=== PATIENT | male | born 1970 | race Caucasian/White ===

== ENCOUNTER 2017-08-12 18:09 | Emergency (ER) | payer SELFPAY ==
[2017-08-12 18:21] LABS: PLATELET COUNT 261 10^3/uL (150-400)
[2017-08-12] MEDS ORDERED: IOPAMIDOL (ISOVUE 370) 100 ML BTL IV ONE (18:29)
--- NOTE | 2017-08-12 18:35 | EDPHY ---
HPI/HX/ROS/PE/MDM Narrative: CHIEF COMPLAINT: Left-sided weakness, facial droop - Stroke Alert HISTORY OF PRESENT ILLNESS: The patient is a 47 y/o male with a history of diabetes and hypertension arriving for left-sided weakness and left-sided facial droop. This morning, just before 8:00 AM, he had difficulty grasping and hold items with his hands and difficulty balancing. He fell and was helped up by his . The episode lasted about 20 minutes. After the episode he returned to normal. This afternoon, at 3:50 PM, his was called because he was unable to stand due to left-sided weakness after having lunch. His picked him up and noticed a prominent left-sided facial droop and drove him to the ED. He denies headache or any other associated symptoms. He may have taken Xanax as he believed his morning episode may have been due to anxiety. He denies seizure history. He denies alcohol consumption today. He quit smoking 1 month ago. Further history obtained later in the emergency department course: Patient was felt to be back at baseline and normal around 820. His then left the house. Patient went to have lunch with a friend arriving just before 2 o' clock. The friend did not noticed any facial droop or obvious weakness although she felt the patient was somewhat slow to the answer some questions and may have been staring off into space. He told her he had taken a Xanax and she attributed the symptoms to possible sedation from Xanax. When they went to leave the restaurant after lunch patient was unable to stand and at that point was noted to have significant weakness in his left leg and left arm. When the arrived she noticed a pronounced left-sided facial droop. No fever, chills, chest pain, shortness of breath, palpitations, vomiting, diarrhea, urinary complaints, headache, lightheadedness. REVIEW OF SYSTEMS: Limited secondary to clinical condition PAST MEDICAL HISTORY: Hypertension, diabetes SOCIAL HISTORY: , at bedside, has a daughter VITAL SIGNS: Reviewed by me GENERAL: Well-developed, well-nourished, left-sided facial droop is present on arrival. HEENT: Atraumatic. Eyes: No icterus, no injection. Mouth: moist mucous membranes. No erythema or lesions. Neck: supple with no adenopathy. LUNGS: Clear to auscultation bilaterally, no wheezes, rhonchi or rales. CARDIAC: Regular rate and rhythm, no rubs, murmurs or gallops. ABDOMEN: Soft, nontender, nondistended, bowel sounds normal. BACK: No CVA tenderness. EXTREMITIES: No trauma. No edema. Range of motion is normal throughout. NEURO: Prominent left sided facial droop. Some left-sided neglect is present. Diminished attention. Speech is somewhat difficult to understand at times. Marked weakness in left arm and leg. SKIN: Warm and dry, no rash. PSYCHIATRIC: Normal mentation, no agitation. ED Course: I met the patient on arrival at 6:10PM. He had prominent left-sided facial droop , left-sided neglect, and marked left arm and leg weakness. On arrival it was unclear of time of onset of symptoms. He was quickly immediately to CT scan for imaging. I then spoke with his and learned of the 8:00 AM episode of dropping items and trouble balancing. According to his , his symptoms resolved in 25 minutes. She was then contacted by a friend at 3:50 PM, as the patient was unable to stand due to left-sided weakness after lunch. She drove up from [employer] and noticed a left-sided facial droop and drove him to the ED. 6:18 PM- CT is not indicative of a hemorrhage and iSTAT indicates a creatinine of 0.9. He will have a CTA to further determine an etiology. 6:25 PM- I spoke with Dr. Fisher at [facility]. 6:35 PM- CTA indicates middle cerebral artery occluded at M2 to M3 in the right hemisphere. Dr. Pathak evaluated this patient using the neurology robot. The patient will be transferred to [facility] for further treatment. Dr. Pathak will be the admitting physician. 6:55 PM- Advised bed patient will not be transferred by helicopter secondary to weather. Arrangements were made for critical care ground transport. 7:20 PM- ALS ground transport is available at this time. Critical care ambulance is still 40 min away. Given the fact that the patient is not currently on tPA and is felt to be outside the window for systemic tPA, as well as urgency in transporting the patient to [facility], this was made that the patient be would be transferred by ALS. I did consult with Dr. Lewis now and regarding this decision and he is in agreement. Patient was given a L of fluid. He is hypertensive, however, Dr. Pathak advises permissive hypertension at this time. Transfer paperwork signed and the patient was taken emergently to [facility]. MDM: Differential diagnoses the patient's presenting complaints was considered including but not limited to intracranial injury, TIA, ischemic cerebrovascular accident, hemorrhagic cerebrovascular accident, hypoglycemia, complex migraine , metastases, tumor, seizure, or electrolyte abnormality - Data Points Imaging Results: Imaging Impressions Head CT 08/12/17 18:11 Impression: 1. No intracranial hemorrhage or territorial infarct identified. 2. CTA brain and neck will be dictated separately Findings were communicated by telephone with Dr. LATHA PENA at 08/12/2017 18 :29 Head CTA 08/12/17 18:19 Impression: Acute thrombosis of the right middle cerebral artery inferior M2 segment Findings were communicated by telephone with Dr. Magy Martinez MD at 2017 18:48 Neck CTA 08/12/17 18:19 Impression: 1. No evidence of arterial occlusive disease in the neck. 2. Minimal fibrocalcific atheromatous disease of the right carotid bulb without associated stenosis. 3. Multinodular thyroid with right nodule calcifications. Dedicated thyroid ultrasound recommended. Findings were communicated by telephone with Dr. Magy Martinez MD at 2017 18:53 Chest X-Ray 08/12/17 18:25 Impression: No evidence of intrathoracic acute pathology Imaging: Discussed imaging studies w/ manager cosmetic Radiologist Laboratory Results: Laboratory Results 08/12/17 18:10 08/12/17 18:10 08/12/17 08/12/17 08/12/17 18:16 18:10 18:10 WBC RBC Hgb POC Hgb 18.0 gm/dL H gm/dL (13.7-17.5) Hct POC Hct 53 % H % (40-51) MCV MCH MCHC RDW Plt Count MPV Neut % (Auto) Lymph % (Auto) Moody % (Auto) Eos % (Auto) Baso % (Auto) Nucleat RBC Rel Count Absolute Neuts (auto) Absolute Lymphs (auto) Absolute Monos (auto) Absolute Eos (auto) Absolute Basos (auto) Absolute Nucleated RBC Immature Gran % Immature Gran # PT 13.3 SEC SEC (12.0-15.0) INR 0.99 (0.83-1.16) POC Sodium 136 mEq/L mEq/L (135-145) Sodium 134 mEq/L L mEq/L (135-145) POC Potassium 3.6 mEq/L mEq/L (3.3-5.0) Potassium 4.0 mEq/L mEq/L (3.5-5.2) POC Chloride 98 mEq/L mEq/L (97-110) Chloride 97 mEq/L mEq/L (97-110) Carbon Dioxide 23 mEq/l mEq/l (22-31) Anion Gap 14 mEq/L mEq/L (8-16) POC BUN 13 mg/dL mg/dL (7-23) BUN 13 mg/dL mg/dL (7-23) Creatinine 0.9 mg/dL mg/dL (0.7-1.3) POC Creatinine 0.9 mg/dL mg/dL (0.7-1.3) Estimated GFR > 60 Glucose 306 mg/dL H mg/dL (70-100) POC Glucose 329 mg/dL H mg/dL (70-100) Calcium 9.4 mg/dL mg/dL (8.5-10.4) Troponin I < 0.012 ng/mL ng/mL (0.000-0.034) Ethyl Alcohol < 10 mg/dL mg/dL (0-10) 08/12/17 18:10 WBC 10.64 10^3/uL H 10^3/uL (3.80-9.50) RBC 5.51 10^6/uL 10^6/uL (4.40-6.38) Hgb 17.7 g/dL H g/dL (13.7-17.5) POC Hgb Hct 48.2 % % (40.0-51.0) POC Hct MCV 87.5 fL fL (81.5-99.8) MCH 32.1 pg pg (27.9-34.1) MCHC 36.7 g/dL g/dL (32.4-36.7) RDW 12.5 % % (11.5-15.2) Plt Count 261 10^3/uL 10^3/uL (150-400) MPV 9.0 fL fL (8.7-11.7) Neut % (Auto) 55.2 % % (39.3-74.2) Lymph % (Auto) 32.7 % % (15.0-45.0) Moody % (Auto) 9.1 % % (4.5-13.0) Eos % (Auto) 2.3 % % (0.6-7.6) Baso % (Auto) 0.4 % % (0.3-1.7) Nucleat RBC Rel Count 0.0 % % (0.0-0.2) Absolute Neuts (auto) 5.87 10^3/uL 10^3/uL (1.70-6.50) Absolute Lymphs (auto) 3.48 10^3/uL H 10^3/uL (1.00-3.00) Absolute Monos (auto) 0.97 10^3/uL H 10^3/uL (0.30-0.80) Absolute Eos (auto) 0.25 10^3/uL 10^3/uL (0.03-0.40) Absolute Basos (auto) 0.04 10^3/uL 10^3/uL (0.02-0.10) Absolute Nucleated RBC 0.00 10^3/uL 10^3/uL (0-0.01) Immature Gran % 0.3 % % (0.0-1.1) Immature Gran # 0.03 10^3/uL 10^3/uL (0.00-0.10) PT INR POC Sodium Sodium POC Potassium Potassium POC Chloride Chloride Carbon Dioxide Anion Gap POC BUN BUN Creatinine POC Creatinine Estimated GFR Glucose POC Glucose Calcium Troponin I Ethyl Alcohol Point of Care Test Results: 08/12/17 18:16 POC Sodium 136 POC Potassium 3.6 POC Chloride 98 POC BUN 13 POC Creatinine 0.9 POC Glucose 329 H General Time Seen by Provider: 08/12/17 18:10 Initial Vital Signs: Initial Vital Signs Temperature (C) 36.7 C 08/12/17 18:15 Heart Rate 81 08/12/17 18:15 Respiratory Rate 18 08/12/17 18:15 Blood Pressure 198/95 H 08/12/17 18:15 O2 Sat (%) 97 08/12/17 18:15 O2 Delivery Mode Room Air Allergies/Adverse Reactions: No Known Allergies Allergy (Unverified 08/12/17 18:36) Home Medications: Medication Instructions Recorded NK [No Known Home Meds] 08/12/17 Departure - Departure Disposition: Acute Care Hospital Not [facility] Clinical Impression: Acute ischemic stroke Middle cerebral artery embolism Qualifiers: Laterality: right Qualified Code(s): I66.01 - Occlusion and stenosis of right middle cerebral artery Condition: Serious Referrals: NONE *PRIMARY CARE P,. [Primary Care Provider] - As per Instructions Report Scribed for: Magy Martinez Report Scribed by: Kelly Shin Date of Report: 08/12/17 Time of Report: 19:09 Physician Review and Approval Statement: Portions of this note were transcribed by a medical file clerk. I personally performed a history, physical exam, medical decision making, and confirmed accuracy of information the transcribed note.
[2017-08-12 18:40] LABS: INR 0.99 (0.83-1.16); PROTIME(PATIENT) 13.3 SEC (12.0-15.0)
--- NOTE | 2017-08-12 18:47 | CPEKG ---
Heart Rate: 105 RR Interval: 571 P-R Interval: 180 QRSD Interval: 92 QT Interval: 356 QTC Interval: 471 P Elrosa: 47 QRS Elrosa: 81 T Wave Elrosa: 12 EKG Severity - ABNORMAL ECG - EKG Impression: SINUS TACHYCARDIA EKG Impression: VENTRICULAR PREMATURE COMPLEX EKG Impression: INTERPOLATED VENTRICULAR PREMATURE COMPLEX EKG Impression: INFERIOR INFARCT, AGE INDETERMINATE Electronically Signed By: Magy Martinez 13-Aug-2017 00:54:15
--- NOTE | 2017-08-12 18:49 | PDCONSULT ---
[employer] Note: [facility] Note Demographics Consult Type: Acute Stroke First Name: Jorge Last Name: Artem Date of : 1970 Age: 47 Gender: Male Time of initial page ([place] ): 08/12/2017 18:23 Time of return call ([place] ): 08/12/2017 18:26 Time Ready to Initiate Telemed Consult ([place] ): 08/12/2017 18:26 HPI Additional History (Free Text): 47yo man who was with at 330PM witnessed by friend. He was at lunch with him at the time. He reports problems walking. He denies any focal weakness in the arm sor legs. He does have left arm and hand numbness. He had similar episode this am at around 7AM, and felt clumsy and unsteady with walking. he states that he was having some issues with coordination bilaterally. He has had continued symptoms with some waxing and waning issues. He did fall at around 2PM or so. Tonight, he was concerned about his lack of coordination. [facility]-- Past Medical History: Diabetes Mellitus, Hypertension Social History: recently quit smoking, occasional alcohol, no drugs Medications: denies medications Exam Vitals: vital signs reviewed SBP: 176 DBP: 112 NIHSS Time ([place] ): 08/12/2017 18:39 LOC 1a: 0 = Alert; keenly responsive LOC 1b: 0 = Answers both questions correctly LOC Commands: 0 = Performs both tasks correctly Best Gaze: 0 = Normal Visual: 0 = No visual loss Facial Palsy: 1 = Minor paralysis (flattened nasolabial fold, asymmetry on smiling) Motor Arm L: 2 = Some effort against gravity; limb cannot get to or maintain ( if cued) 90 (or 45) degrees, drifts down to bed, but has some effort against gravity Motor Arm R: 0 = No drift; limb holds 90 (or 45) degrees for full 10 seconds Motor Leg L: 0 = No drift; leg holds 30-degree position for full 5 seconds Motor Leg R: 0 = No drift; leg holds 30-degree position for full 5 seconds Limb Ataxia: 0 = Absent Sensory: 1 = [id number] sensory loss; patient feels pinprick is less sharp or is dull on the affected side, but patient is aware of being touched Best Language: 0 = No aphasia; normal Dysarthria: 1 = [id number] dysarthria; patient slurs at least some words Extinction + Inattention: 1 = Visual, tactile, auditory, spatial, or personal inattention NIHSS: 6 Data Glucose: wnl, [address]: MCA sign, rigth M3 branch Assessment Assessment: Acute Ischemic Stroke, right MCA stroke syndrome Plan Lytic/Intervention: IA intervention tPA Exclusion (< 3hr window): Time of onset unclear Blood Pressure Managment: Labetolol Target Blood Pressure: SBP < 220 Labs: Comprehensive metabolic panel, ESR, Lipid Panel, UDS Diagnostic test: echocardiogram with bubble Therapy/Eval: NPO until cleared by swallow evaluation, PT/OT, Speech/Swallow therapy consult Medication: aspirin 81mg per day VTE Prophylaxis: SCD, Heparin 5000 units subcutaneously q 12 hours Other: LDL goal less than 70, permissive HTN, telemetry monitoring, I have discussed my recommendations with the referring provider Disposition: transfer to [facility] Telemedicine: Interactive 2 way audio and visual telecommunication technology was utilized during this visit. Provider Location: [place]
[2017-08-12 19:20] VITALS: BP 178/106
== END 2017-08-12 19:32 | disposition short-term general hospital (02) ==
DX: I66.01 Occlusion and stenosis of right middle cerebral artery (principal); I63.9 Cerebral infarction, unspecified; I10 Essential (primary) hypertension; E11.9 Type 2 diabetes mellitus without complications
CPT/HCPCS: 82947-QW; G0480; Q9967